=== PATIENT | male | born 1965 | race Caucasian/White ===

== ENCOUNTER 2016-10-13 16:22 | Inpatient (IN) | payer MEDICAID, OTHER ==
[~2016-10-13] VITALS: Ht 177.8 cm; Wt 77.1 kg
[~2016-10-13 16:22] MED LIST: HYDR-548 PO; RIFA300C4 PO; SULF1TAB48 PO
[2016-10-13] MEDS ORDERED: IV NORMAL SALINE 1000 ML BAG IV ONE (16:45)
[2016-10-13] MEDS ORDERED: ACETAMINOPHEN ES 500 MG TABLET PO ONE (16:45)
[2016-10-13] MEDS ORDERED: ACETAMINOPHEN ES 500 MG TABLET ONE (16:59)
[2016-10-13] MEDS ORDERED: PIPERACILLIN SODIUM/TAZOBACTAM 3.375 G in IV DEXTROSE 5% 50 ML IV ONE (17:15)
[2016-10-13] MEDS ORDERED: VANCOMYCIN IV 1,000 MG in IV DEXTROSE 5% 250 ML IV ONE (17:15)
--- NOTE | 2016-10-13 17:15 | NUR ---
UNABLE TO TAKE PICTURES; NO CAMERA IN ED
[2016-10-13 17:27] LABS: BASOPHILS # (AUTO) 0.6 K/uL (0.0-8.0); BASOPHILS % (AUTO) 2.8 % (0.0-2.0); EOSINOPHILS % (AUTO) 0.1 % (0.0-7.0); HEMATOCRIT 38.1 % (40-50); HEMOGLOBIN 12.6 G/DL (14.0-18.0); LYMPHOCYTES # (AUTO) 1.5 K/UL (0.8-4.8); LYMPHOCYTES % (AUTO) 7.4 % (20.5-51.5); MEAN CORPUSCULAR HEMOGLOBIN 27.7 UUG (27.0-31.0); MEAN CORPUSCULAR HGB CONC 33 g/dL (32.0-37.0); MONOCYTES # (AUTO) 1.2 K/UL (0.1-1.30); MONOCYTES % (AUTO) 5.9 % (0.0-11.0); NEUTROPHILS # (AUTO) 17.1 K/UL (1.8-8.9); NEUTROPHILS % (AUTO) 83.8 % (38.5-71.5); PLATELET COUNT (AUTO) 325 K/UL (150-450); RED BLOOD CELL COUNT(AUTO) 4.53 MIL/UL (4.7-6.1)
[2016-10-13 17:30] LABS: WHITE BLOOD COUNT (AUTO) 20.4 K/UL (4.0-11.2)
[2016-10-13] MEDS ORDERED: PIPERACILLIN/TAZOBACTAM/D5W 50 ML IV ONE (17:33)
[2016-10-13 17:35] LABS: CREATININE 1.1 mg/dL (0.6-1.3); POTASSIUM 4.4 mmol/L (3.5-5.1)
[2016-10-13 17:40] LABS: BILIRUBIN,DIRECT 0.2 mg/dL (0.0-0.2); BILIRUBIN,TOTAL 0.9 mg/dL (0.2-1.0); TOTAL PROTEIN, SERUM 7.9 g/dL (6.4-8.2)
--- NOTE | 2016-10-13 17:45 | NUR ---
ATTEMPTED TO CALL REPORT PER [employer] COMPANY DANCER. RN IS NOT AVAILABLE AT [facility] TIME.
[2016-10-13] MEDS ORDERED: VANCOMYCIN IV 200 ML ONE (18:00)
[2016-10-13 18:06] LABS: BAND % (MANUAL) 7 % (0-10); LYMPHOCYTES % (MANUAL) 9 % (20-40); MONOCYTES % (MANUAL) 4 % (2-10); NEUTROPHILS % (MANUAL) 80 % (42-75)
--- NOTE | 2016-10-13 18:17 | NUR ---
ATTEMPTED TO GIVEN REPORT, PER CANDICE AKERS UNABLE TO TAKE REPORT AT THIS TIME. WILL CALL BACK
--- NOTE | 2016-10-13 18:37 | NUR ---
REPORT GIVEN TO STEVE HARVEY, AWARE OF PT'S CURRENT CONDITION. WILL CONTINUE PLAN OF CARE
--- NOTE | 2016-10-13 19:00 | NUR ---
RECEIVED PATIENT FROM ER VIA [place], USHERED TO ROOM AND PLACED COMFORTABLY IN BED. TELE SR. ALERT AND ORIENTED. ABLE TO TO MAKE NEEDS KNOWN. ABLE TO PROVIDE HISTORY. BODY ASSESSMENT DONE. NOTED RIGHT LEG LARGER THAN THE LEFT D/T CELLULITIS. NOTED WOUNDS ON BILATERAL KNEES AND ARMS. SAFETY INITIATED. NEEDS ATTENDED. NO COMPLAINS OF PAIN. INSTRUCTED TO USE CALL LIGHT WHEN IN NEED OF ASSISTANCE. CALL LIGHT WITHIN REACH. WILL CONTINUE TO MONITOR.
[2016-10-13 20:00] VITALS: BP 111/69
[2016-10-13] MEDS ORDERED: MAGNESIUM HYDROXIDE 30 ML LIQUID UDC PO PRN (21:30)
[2016-10-13] MEDS ORDERED: ACETAMINOPHEN 325 MG TABLET PO PRN (21:30)
[2016-10-13] MEDS ORDERED: PIPERACILLIN/TAZOBACTAM/D5W 100 ML IV ONE (22:04)
[2016-10-13] MEDS: IV NS 1000 ML 1,000 ML IV PRN (22:28)
[2016-10-13] MEDS: PIPERACILLIN/TAZOBACTAM/D5W 50 ML IV SCH (22:28)
[2016-10-14] MEDS: MORPHINE SULFATE 2 MG/1 ML DISP.SYRIN IV PRN ×2 (01:36→05:39)
[2016-10-14] MEDS ORDERED: MORPHINE SULFATE 4 MG/1 ML DISP.SYRIN ONE ×2 (01:46→05:50)
[2016-10-14] MEDS: ONDANSETRON 4 MG/2 ML VIAL IV PRN ×2 (02:56→20:47)
[2016-10-14] MEDS: HYDROCODONE/APAP 5-325MG TABLET PO PRN ×4 (02:57→20:47)
[2016-10-14] MEDS ORDERED: HYDROCODONE/APAP 5-325MG TABLET ONE (03:07)
[2016-10-14] MEDS ORDERED: ONDANSETRON 4 MG/2 ML VIAL ONE (03:08)
[2016-10-14] MEDS: PIPERACILLIN/TAZOBACTAM/D5W 50 ML IV SCH ×5 (04:47→20:53)
[2016-10-14 06:32] VITALS: BP 131/92
--- NOTE | 2016-10-14 06:51 | NUR ---
LEONIE DID NOT HAVE ANY 2 MG. MORPHINE. TOOK OUT THE 4 MG. AND WASTED 2 MG.
[2016-10-14 06:55] LABS: BASOPHILS # (AUTO) 0.1 K/uL (0.0-8.0); BASOPHILS % (AUTO) 0.3 % (0.0-2.0); EOSINOPHILS # (AUTO) 0.1 K/uL (0.0-0.7); EOSINOPHILS % (AUTO) 0.5 % (0.0-7.0); HEMATOCRIT 35.8 % (40-50); HEMOGLOBIN 11.9 G/DL (14.0-18.0); LYMPHOCYTES # (AUTO) 1.2 K/UL (0.8-4.8); LYMPHOCYTES % (AUTO) 6.2 % (20.5-51.5); MEAN CORPUSCULAR HGB CONC 33 g/dL (32.0-37.0); MEAN CORPUSCULAR VOLUME 84.2 FL (82.0-92.0); NEUTROPHILS # (AUTO) 17.5 K/UL (1.8-8.9); PLATELET COUNT (AUTO) 275 K/UL (150-450); RED BLOOD CELL COUNT(AUTO) 4.25 MIL/UL (4.7-6.1); WHITE BLOOD COUNT (AUTO) 19.9 K/UL (4.0-11.2)
[2016-10-14 07:24] LABS: BILIRUBIN,TOTAL 0.8 mg/dL (0.2-1.0); CREATININE 1.1 mg/dL (0.6-1.3); MAGNESIUM 1.7 mg/dL (1.8-2.4); PHOSPHOROUS 2.6 mg/dL (2.5-4.9); POTASSIUM 3.9 mmol/L (3.5-5.1); TOTAL PROTEIN, SERUM 6.8 g/dL (6.4-8.2)
[2016-10-14 07:39] LABS: NEUTROPHILS % (MANUAL) 78 % (42-75)
[2016-10-14 07:40] LABS: BAND % (MANUAL) 12 % (0-10); LYMPHOCYTES % (MANUAL) 6 % (20-40); MONOCYTES % (MANUAL) 4 % (2-10)
--- NOTE | 2016-10-14 07:45 | NUR ---
NO CHANGES T/O THE NIGHT. ALL SAFETY AND COMFORT MEASURES MAINTAINED T/O SHIFT. PATIENT COMPLAINED OF PAIN IN LOWER EXT. MEDS GIVEN, STATED RELIEF. WOUND CARE WITH SALINE AND PAT DRY. ALL SAFETY AND COMFORT MEASURES MAINTAINED T/O SHIFT. CALL LIGHT WITHIN REACH.
[2016-10-14] MEDS: MORPHINE SULFATE 4 MG/1 ML DISP.SYRIN IV PRN ×3 (09:35→17:56)
--- NOTE | 2016-10-14 09:44 | NUR ---
PT. HAS TEMP 100.0. TYLENOL GIVEN PER MAR. COOL CLOTHS APPLIED. PT. RESTING. JAMES. LEGS 10/26. MORPHINE GIVEN. JAMES LEGS ELEVATED. ALL NEEDS ATTENDED.
[2016-10-14] MEDS ORDERED: MAGNESIUM SULFATE/D5W 100 ML IV SCH (10:00)
[2016-10-14 11:49] LABS: *BILIRUBIN,URIN NEGATIVE (NEGATIVE); *BLOOD, URINE 1+ (NEGATIVE); *CLARITY,URINE SLIGHTLY CLOUDY (CLEAR); *COLOR,URINE YELLOW (YELLOW); *KETONES,URINE NEGATIVE (NEGATIVE); *PROTEIN,URINE TRACE (NEGATIVE); *UROBILINOGEN,URINE 0.2 E.U./dl (NORMAL); LEUKOCYTE ESTERASE ,URINE NEGATIVE (NEGATIVE); NITRITE, URINE NEGATIVE (NEGATIVE); UGLUCOSE NEGATIVE (NEGATIVE)
[2016-10-14 11:51] VITALS: BP 138/89
[2016-10-14 11:58] LABS: BACTERIA,URINE FEW /HPF (NONE SEEN); RBC,URINE 0-3 /HPF (0-3); SQUAMOUS EPITHELIAL CELL,UR FEW /HPF (NONE SEEN); WBC,URINE 0-3 /HPF (0-3)
[2016-10-14] MEDS: PANTOPRAZOLE SODIUM 40 MG TABLET.DR PO SCH (13:23)
[2016-10-14] MEDS: VANCOMYCIN IV 1,250 MG in IV DEXTROSE 5% 500 ML IV SCH ×2 (13:25→23:06)
[2016-10-14 15:31] VITALS: BP 129/82
--- NOTE | 2016-10-14 16:04 | NUR ---
Clinical pharmacy note-Vancomycin dosing per pharmacy Subjective: To start Vancomycin dosing on this patient for cellulitis Objective: BUN 21 Scr 1.1 WBC 19.9 Temp 8.8 Ht 5'10" Wt 170 lbs Assessment/Plan: Patient had Vancomycin 1gram in ER last night at 1753. Will continue Vancomycin as 1250mg IV every 13hrs (first dose given today at 1000) and draw trough by 4th dose(not ordered yet) for expected trough around 15. Will monitor renal function closely to adjust the dose if needed . Will follow daily.
[2016-10-14 19:00] VITALS: BP 142/82
--- NOTE | 2016-10-14 19:02 | NUR ---
PT. SLEEPING MOST OF SHIFT. GOOD APPETITE. INTERMITTENTLY REQUESTING PAIN MEDS IN A IRRITABLE MANNER. IV IN L. WRIST VERY SENSITIVE BUT FUNCTIONING. 3 UNSUCCESSFUL IV ATTEMPTS BY 2 RNS. IV PLACED IN R. FOREARM AND VANCO INFUSING. IV INFILTRATED WITHIN 20 MINUTES. IV REMOVED, ARM ELEVATED AND ICE PACK APPLIED. PT. ASKED IF A MIDLINE COULD BE PLACED AND HE REFUSED. SLEEPING CURRENTLY. DR. VILLARREAL NOTIFIED OF IV STATUS.
--- NOTE | 2016-10-14 19:30 | NUR ---
RECEIVED PATIENT LAYING IN BED. FACIAL GRIMACING, MOANING AND RIGHT ARM ON HIS FACE. FROM BILATERAL LEG PAIN 12/26. AM NURSE RON AND I ASKED IF WE COULD GO AHEAD AND INFUSE THE ZOSYN. PATIENT STATED "I DONT WANT ANYTHING ON". SAFETY INITIATED. CALL LIGHT WITHIN REACH. INFILTRATED ARM ELEVATED. WILL CONTINUE TO MONITOR.
--- NOTE | 2016-10-14 20:58 | NUR ---
GAVE NORCO 5-325 WITH ZOFRAN 2 MG IVP FOR PAIN 10/10 BILATERAL LEGS.
--- NOTE | 2016-10-14 21:00 | NUR ---
STARTED ZOSYN. PATIENT SAID "JUST LONG YOU RUN IT SLOW". STARTED IT AT 25 CC/HR. WILL CLOSELY MONITOR BECAUSE HE IS A HARD STICK. WILL TITRATE UP TO 50 CC/HR.
--- NOTE | 2016-10-14 21:05 | NUR ---
DR. VILLARREAL AT BEDSIDE. SEE ADDITIONAL ORDERS. CHANGED PAIN MED FROM MORPHINE TO DILAUDID 1 MG Q3H IVP ( REQUESTED BY PATIENT).
[2016-10-14] MEDS: HYDROMORPHONE 1 MG/1 ML DISP.SYRIN IV PRN (23:02)
[2016-10-14] MEDS ORDERED: HYDROMORPHONE 1 MG/1 ML DISP.SYRIN ONE (23:13)
[2016-10-15] MEDS: HYDROMORPHONE 1 MG/1 ML DISP.SYRIN IV PRN ×6 (01:47→23:17)
[2016-10-15] MEDS ORDERED: HYDROMORPHONE 1 MG/1 ML DISP.SYRIN ONE ×2 (01:53→04:52)
[2016-10-15 04:00] VITALS: BP 136/94
[2016-10-15] MEDS: PIPERACILLIN/TAZOBACTAM/D5W 50 ML IV SCH ×5 (04:35→20:44)
--- NOTE | 2016-10-15 05:00 | NUR ---
PATIENT REFUSED BLOOD DRAW.
[2016-10-15] MEDS: PANTOPRAZOLE SODIUM 40 MG TABLET.DR PO SCH (06:25)
--- NOTE | 2016-10-15 06:33 | NUR ---
PATIENT SLEPT INTERMITTENTLY T/O SHIFT. NO ACUTE DISTRESS NOTED. PATIENT ANGRILY ASKS FOR PAIN MEDICATION. GAVE PAIN MEDS, STATED RELIEF. ALL MEDS GIVEN ORDERED. NEEDS MET. CALL LIGHT WITHIN REACH. SAFETY AND COMFORT MAINTAINED T/O SHIFT.
[2016-10-15] MEDS: HYDROCODONE/APAP 5-325MG TABLET PO PRN ×3 (07:24→21:54)
--- NOTE | 2016-10-15 10:31 | NUR ---
Clinical pharmacy note-Vancomycin dosing per pharmacy Subjective: To continue Vancomycin dosing on this patient for cellulitis Objective: BUN 21 (10/14) Scr 1.1 (10/14) WBC 19.9 (10/14) Temp 98.9 Ht 5'10" Wt 170 lbs Assessment/Plan: Will continue Vancomycin as 1250mg IV every 13hrs for today. Third dose is due today at noon. Plan to draw trough by 4th dose( ordered for 10/16 at 0030- RN has been informed to hold 0100 dose if the vanco trough level is above 20 mcg/ml). Pharmacy shall review the level in am & adjust the dose if needed. Will follow daily.
[2016-10-15] MEDS ORDERED: IV NORMAL SALINE 500 ML IV ONE (11:30)
[2016-10-15 11:51] VITALS: BP 134/88
[2016-10-15] MEDS: VANCOMYCIN IV 1,250 MG in IV DEXTROSE 5% 500 ML IV SCH (12:40)
--- NOTE | 2016-10-15 15:30 | NUR ---
unable to give zosyn at this time due to no iv access---midline ordered awaiting insertion.
[2016-10-15 16:10] VITALS: BP 156/99
[2016-10-15 19:53] VITALS: BP 147/96
[2016-10-15] MEDS ORDERED: NORMAL SALINE FLUSH 10 ML DISP.SYRIN ONE (20:31)
--- NOTE | 2016-10-15 20:34 | NUR ---
PT RETURNED FROM IR LAB RESULT CALLED TO DR. WOODWARD. NO ORDERS GIVEN.
[2016-10-15] MEDS: IV NS 1000 ML 1,000 ML IV PRN (20:45)
--- NOTE | 2016-10-15 22:00 | NUR ---
CALLED [facility] FOR TRANSFER FOR HIGHER LEVEL OF CARE,REFERRED TO CALL IN AM [phone].[facility] called ,doesnt have any bed at this time.have the case management specialist to call in am [phone].faxed facesheet to [facility].
--- NOTE | 2016-10-16 00:13 | NUR ---
PT MIDLINE UNABLE TO DRAW BLOOD, PT HAS A VANCO TROUGH AND PT REFUSED TO HAVE BLOOD DRAWN PERIPHERALLY . CONTINUE WITH ANTIBIOTICS WILL DRAW BLOOD WITH AM LABS.
[2016-10-16] MEDS: VANCOMYCIN IV 1,250 MG in IV DEXTROSE 5% 500 ML IV SCH (01:05)
[2016-10-16] MEDS: PIPERACILLIN/TAZOBACTAM/D5W 50 ML IV SCH ×4 (03:26→23:44)
[2016-10-16] MEDS: HYDROMORPHONE 1 MG/1 ML DISP.SYRIN IV PRN ×7 (05:42→23:44)
[2016-10-16 05:52] VITALS: BP 153/99
[2016-10-16] MEDS: PANTOPRAZOLE SODIUM 40 MG TABLET.DR PO SCH (06:09)
[2016-10-16 06:31] LABS: BASOPHILS # (AUTO) 0.1 K/uL (0.0-8.0); BASOPHILS % (AUTO) 0.8 % (0.0-2.0); EOSINOPHILS # (AUTO) 0.2 K/uL (0.0-0.7); EOSINOPHILS % (AUTO) 1.7 % (0.0-7.0); HEMATOCRIT 36.2 % (40-50); HEMOGLOBIN 11.9 G/DL (14.0-18.0); LYMPHOCYTES # (AUTO) 1.6 K/UL (0.8-4.8); MEAN CORPUSCULAR HEMOGLOBIN 27.5 UUG (27.0-31.0); MEAN CORPUSCULAR HGB CONC 33 g/dL (32.0-37.0); MEAN CORPUSCULAR VOLUME 83.5 FL (82.0-92.0); MONOCYTES # (AUTO) 0.5 K/UL (0.1-1.30); MONOCYTES % (AUTO) 3.5 % (0.0-11.0); NEUTROPHILS # (AUTO) 10.9 K/UL (1.8-8.9); PLATELET COUNT (AUTO) 291 K/UL (150-450); RED BLOOD CELL COUNT(AUTO) 4.34 MIL/UL (4.7-6.1); WHITE BLOOD COUNT (AUTO) 13.3 K/UL (4.0-11.2)
[2016-10-16 06:41] LABS: BILIRUBIN,TOTAL 0.4 mg/dL (0.2-1.0); CREATININE 0.9 mg/dL (0.6-1.3); MAGNESIUM 1.7 mg/dL (1.8-2.4); PHOSPHOROUS 3.3 mg/dL (2.5-4.9); POTASSIUM 4.5 mmol/L (3.5-5.1); TOTAL PROTEIN, SERUM 7.4 g/dL (6.4-8.2)
--- NOTE | 2016-10-16 06:54 | NUR ---
TEXTED DR. LYONS FOR MRI APPROVAL.
[2016-10-16 07:27] LABS: THYROID STIMULATING HORMONE 2.427 mIU/mL (0.358-3.740)
--- NOTE | 2016-10-16 08:03 | NUR ---
RECEIVED PHONE CONFIRMATION OF MRI APPROVAL FROM [facility]. TRANSPORTATION IS BEING ARRANGED FOR 830AM PICKUP FOR A 9A, TABLE TIME.
[2016-10-16] MEDS ORDERED: GADOVERSETAMIDE 2.5 MMOL/5 ML VIAL MC ONE (09:57)
[2016-10-16] MEDS: METOPROLOL TARTRATE 25 MG TABLET PO SCH ×2 (10:15→19:54)
[2016-10-16] MEDS ORDERED: MAGNESIUM OXIDE 400 MG TABLET PO ONE (14:30)
--- NOTE | 2016-10-16 15:51 | NUR ---
Had been in contact with Juana from [facility] [ ; ] and she confirmed that the patient is under their care starting from 09/16/16. She is aware the patient needs a higher level of care for necrotizing fasciitis possibly needing amputation and patternmaker plaster and plastic per Dr. Alvarez. Juana tried to transfer to [place] but was unable to get an admitting Ortho. The awake overnight counselor initiated his transfer to [facility] and this finishing operator had been in contact with Dustin from [facility] [ ; ] and Cornel from [facility] [ ]. Cornel stated that they are not contracted with [facility] but if they provide Authorization for a One-Time Agreement, they are willing to look for a bed. He added that the insurance company needs to call with 3 authorizations [Facility Auth; LUIS CARLOS; and a Professional Auth]. Informed Juana of what [facility] needs and she stated that Rachel from [facility] will be working on the authorizations. Updated the zinc furnace charger, Kimber, about the situation. Addendum: 10/16/16 at 1611 by SANDRITA JAIMES CMG Dr. Yu was contacted by Dr. Robbin Elias [ ] and he agreed to be the admitting MD at [facility]. Addendum: 10/16/16 at 1626 by SANDRITA JAIMES CM Juana called and stated that Rachel [ ext. [phone]], DEBBIE Madera, provided the authorization to [facility]. Juana confirmed that the authorization is all inclusive [Auth# [id number] covering 10/16/16 until 12/16/16]. Provided her with [facility]'s the admitting MD's information. She stated that [facility] [ or ]. Addendum: 10/16/16 at 1636 by SANDRITA JAIMES CM Called Cornel from [facility] and gave him the authorization# from DEBBIE Madera, Phone number of Rachel and Juana. He will follow-up to see if he can financially clear the patient. Once the patient is financially cleared, the transfer center will be looking for an available bed and will call the RN station to proceed with the report and transfer.
[2016-10-16 16:53] VITALS: BP 147/97
--- NOTE | 2016-10-16 18:15 | NUR ---
PATIENT HAD AN MRI PERFORMED, BUT THEY COULD NOT GIVE IV CONTRAST. PATIENT RETURNED FROM MRI AT 11AM, AND CONTINUED TO ASK FOR PAIN MEDICINE EVERY 3 HOURS. PATIENT ALSO REFUSED HAVING BLOOD DRAW, BUT FINALLY [facility]. PATIENT IS CURRENTLY IN BED SLEEPING, NO EVIDENCE OF DISTRESS NOTED.
[2016-10-16] MEDS: HYDROCODONE/APAP 5-325MG TABLET PO PRN (19:57)
--- NOTE | 2016-10-16 21:00 | NUR ---
NSG: RETURNED CALL TO [facility], VERIFY REGARDING TRANSFER STATUS FOR PT, SPOKE WITH REP, STATED PT IS DENIED OF TRANSFER TO [facility]. DR. VILLARREAL IS NOTIFIED. NO NEW ORDER RECEIVED.
[2016-10-17] MEDS: HYDROMORPHONE 1 MG/1 ML DISP.SYRIN IV PRN ×7 (02:49→23:08)
--- NOTE | 2016-10-17 05:51 | NUR ---
NSG: UNABLE TO DRAW BLOOD FROM THE MIDLINE. PT REFUSED BLOOD DRAW BY ERP PM, ANGRILY STATED TO DRAW FR HIS ARTERY. PT VERBALLY ABUSIVE TO STAFF. NOTIFIED CHARGE NURSE.
[2016-10-17] MEDS: PIPERACILLIN/TAZOBACTAM/D5W 50 ML IV SCH ×3 (06:34→18:09)
[2016-10-17] MEDS: PANTOPRAZOLE SODIUM 40 MG TABLET.DR PO SCH (06:34)
[2016-10-17] MEDS: IV NS 1000 ML 1,000 ML IV PRN (06:38)
[2016-10-17 06:46] VITALS: BP 149/102
[2016-10-17 08:10] LABS: CREATININE 0.9 mg/dL (0.6-1.3); MAGNESIUM 1.8 mg/dL (1.8-2.4); POTASSIUM 4.1 mmol/L (3.5-5.1)
--- NOTE | 2016-10-17 08:44 | NUR ---
PT ALLOWED MYSELF TO DRAW BLOOD FROM MIDLINE, GOT BLOOD RETURN, PT NOW SLEEPING IN BED AT THIS TIME, ALL SAFETY MEASURES ATTENDED TOO, IV INTACT AND INFUSING WELL. LEGS ELEVATED, CALL LIGHT IN REACH, WILL CONTINUE TO MONITOR
[2016-10-17] MEDS: METOPROLOL TARTRATE 25 MG TABLET PO SCH ×2 (09:20→21:17)
--- NOTE | 2016-10-17 09:47 | NUR ---
WOUND CARE CONSULT WOUND CARE RECEIVED CONSULT FOR PATIENT. ELECTRIC FAN ASSEMBLER WILL DEFER TO SURGEONS AT THIS TIME. DISCUSSED WITH GROUND CREWMAN.
[2016-10-17] MEDS: HYDROCODONE/APAP 5-325MG TABLET PO PRN ×2 (10:42→18:09)
--- NOTE | 2016-10-17 10:59 | NUR ---
PT EXPRESSING PAIN 8/10 IN RIGHT KNEE, AND WANTS NORCO. NORCO GIVEN ORDERED, WILL CONTINUE TO MONITOR
[2016-10-17 11:51] VITALS: BP 153/95
[2016-10-17 16:00] VITALS: BP 151/100
--- NOTE | 2016-10-17 16:20 | NUR ---
Spoke with the patient's manager track [Juana ] who gave this courtroom reporter a list of contracted SNF's. faxed the facilities below CM/SW to follow: 1. [facility] [phone] 2. [facility] [phone] 3.[facility] [phone] 4. [facility] [phone] 5. [facility] [phone] 6. [facility] [phone] 7. [facility] [phone] 8. [facility] [phone] 9. [facility] [phone] 10. [facility] [phone]
--- NOTE | 2016-10-17 18:33 | NUR ---
CO RESTING IN BED, IN NO ACUTE DISTRESS, MEDICATED FOR PAIN THROUGHOUT SHIFT NEEDED, CALL LIGHT IN REACH
[2016-10-17 20:00] VITALS: BP 151/94
--- NOTE | 2016-10-17 20:31 | NUR ---
CLINICAL PHARMACY NOTE:VANCOMYCIN DOSING Restart of vancomycin on 51 y/o male 5' 10" 170lbs for right knee infection temp 98.8f BUN 10 scr 0.9 WBC 13.3 also on zosyn and clindamycin vancomycin 1250mg ivpb q12h estimate trough 13. Will continue to monitor
[2016-10-17] MEDS: VANCOMYCIN IV 1,250 MG in IV DEXTROSE 5% 500 ML IV SCH (21:17)
[2016-10-17] MEDS ORDERED: CLINDAMYCIN PHOSPHATE IV 900 MG in IV DEXTROSE 5% 100 ML IV SCH (22:00)
[2016-10-17] MEDS: CLINDAMYCIN PHOSPHATE IV 900 MG in IV DEXTROSE 5% 100 ML IV SCH (23:08)
[2016-10-18] MEDS: IV NS 1000 ML 1,000 ML IV PRN (02:19)
[2016-10-18] MEDS: HYDROMORPHONE 1 MG/1 ML DISP.SYRIN IV PRN ×8 (02:19→23:33)
[2016-10-18] MEDS: PIPERACILLIN/TAZOBACTAM/D5W 50 ML IV SCH ×4 (02:19→17:15)
[2016-10-18 04:15] VITALS: BP 174/115
[2016-10-18] MEDS: CLINDAMYCIN PHOSPHATE IV 900 MG in IV DEXTROSE 5% 100 ML IV SCH ×3 (05:31→23:33)
--- NOTE | 2016-10-18 05:32 | NUR ---
ATTEMPTED TO DRAW BLOOD FROM MIDLINE BUT NO BLOOD RETURN OBSERVED, PT IRRITABLE AND REFUSED TO HAVE CAPACITOR REPAIRER DRAW BLOOD. WILL NOTIFY
[2016-10-18] MEDS: PANTOPRAZOLE SODIUM 40 MG TABLET.DR PO SCH (06:19)
--- NOTE | 2016-10-18 06:37 | NUR ---
PT SLEPT WELL THROUGH OUT THE NIGHT, AWAKE AT TIMES REQUESTING DILAUDID ORDERED. PT TOLERATING IV FLUIDS AND ANTIBIOTICS WELL. NO ACUTE DISTRESS NOTED. SAFETY MEASURES MAINTAINED.
[2016-10-18 07:02] VITALS: BP 161/118
--- NOTE | 2016-10-18 08:23 | NUR ---
PT BLOOD PRESSURE 161/118. SITTING IN BED EATING BREAKFAST, CALLED PHARMACY FOR DUE LOPRESSOR NOT SHOWING IN [facility]IX[facility]. PHARMACY WILL BRING UP MEDICATION. IN THE MEAN TIME, IV FLUID RATE TURNED DOWN AND DUE PRN DILAUDID 1MG IV GIVEN. WILL CONTINUE TO MONITOR CLOSELY
[2016-10-18] MEDS: METOPROLOL TARTRATE 25 MG TABLET PO SCH ×2 (08:38→20:38)
--- NOTE | 2016-10-18 08:45 | NUR ---
MD AWARE OF PT BP. MEDICATIONS GIVEN ORDERED
[2016-10-18] MEDS: HYDROCODONE/APAP 5-325MG TABLET PO PRN ×2 (09:54→19:36)
[2016-10-18] MEDS: VANCOMYCIN IV 1,250 MG in IV DEXTROSE 5% 500 ML IV SCH ×2 (10:11→21:57)
[2016-10-18 10:17] LABS: BASOPHILS # (AUTO) 0.2 K/uL (0.0-8.0); BASOPHILS % (AUTO) 2.1 % (0.0-2.0); EOSINOPHILS # (AUTO) 0.1 K/uL (0.0-0.7); EOSINOPHILS % (AUTO) 1.9 % (0.0-7.0); HEMATOCRIT 26.6 % (40-50); LYMPHOCYTES # (AUTO) 1.2 K/UL (0.8-4.8); LYMPHOCYTES % (AUTO) 16.5 % (20.5-51.5); MEAN CORPUSCULAR HEMOGLOBIN 28.5 UUG (27.0-31.0); MEAN CORPUSCULAR HGB CONC 34 g/dL (32.0-37.0); MEAN CORPUSCULAR VOLUME 84.8 FL (82.0-92.0); MONOCYTES # (AUTO) 0.3 K/UL (0.1-1.30); MONOCYTES % (AUTO) 3.8 % (0.0-11.0); NEUTROPHILS # (AUTO) 5.7 K/UL (1.8-8.9); NEUTROPHILS % (AUTO) 75.7 % (38.5-71.5); PLATELET COUNT (AUTO) 291 K/UL (150-450); RED BLOOD CELL COUNT(AUTO) 3.14 MIL/UL (4.7-6.1); WHITE BLOOD COUNT (AUTO) 7.5 K/UL (4.0-11.2)
[2016-10-18 11:32] VITALS: BP 150/103
--- NOTE | 2016-10-18 15:12 | NUR ---
CLINICAL PHARMACY NOTE:VANCOMYCIN DOSING Subjetive: Restart of vancomycin on 51 y/o male 5' 10" 170lbs for right knee infection Objective: temp 98.8f BUN 10 scr 0.9 WBC 13.3 also on zosyn and clindamycin Assessment/Plan Continued vancomycin 1250mg ivpb q12h estimate trough 13. 3rd dose due today at 2100. Ordered trough before 4th scheduled dose (due tomorrow / @ 0830am). Will check trough and readjust as needed. Will continue to monitor
[2016-10-18 15:52] VITALS: BP 147/102
--- NOTE | 2016-10-18 18:39 | NUR ---
ALL DUE MEDICATIONS GIVEN, ALL SAFETY AND COMFORT MEASURES MAINTAINED THROUGHOUT SHIFT CALL LIGHT IN REACH.
--- NOTE | 2016-10-18 19:53 | NUR ---
RECEIVED PATIENT COMFORTABLY LAYING IN BED. A/O X'S 4 BUT KEPT TO SELF. PATIENT COMPLAINED NO ACUTE DISTRESS NOTED. SAFETY INITIATED. CALL LIGHT WITHIN REACH.
[2016-10-19] MEDS: PIPERACILLIN/TAZOBACTAM/D5W 50 ML IV SCH ×4 (00:46→17:55)
[2016-10-19] MEDS: HYDROMORPHONE 1 MG/1 ML DISP.SYRIN IV PRN ×7 (02:37→21:10)
[2016-10-19 04:00] VITALS: BP_SYST 145; BP_SYST 159; BP_DIAS 104; BP_DIAS 96
[2016-10-19] MEDS: CLINDAMYCIN PHOSPHATE IV 900 MG in IV DEXTROSE 5% 100 ML IV SCH ×2 (05:05→14:44)
[2016-10-19] MEDS: PANTOPRAZOLE SODIUM 40 MG TABLET.DR PO SCH (06:06)
--- NOTE | 2016-10-19 06:27 | NUR ---
PATIENT SLEPT INTERMITTENTLY T/O SHIFT. FREQUENTLY ASKS FOR PAIN MEDS. MEDS GIVEN ORDERED. STATED RELIEF. B/P WAS ELEVATED T/O SHIFT. CHARGE NURSE MD GABRIEL LINARES MD INCREASED MED (LOPRESSOR) AND ADDED NORVASC IN THE AM. NO ACUTE DISTRESS NOTED. SAFETY AND COMFORT MEASURES MAINTAINED T/O SHIFT. ALL NEEDS MET.
[2016-10-19] MEDS: METOPROLOL TARTRATE 25 MG TABLET PO SCH (08:28)
[2016-10-19] MEDS: AMLODIPINE 10 MG TABLET PO SCH (08:28)
[2016-10-19] MEDS: VANCOMYCIN IV 1,250 MG in IV DEXTROSE 5% 500 ML IV SCH ×2 (11:23→20:16)
[2016-10-19 11:48] VITALS: BP 141/84
[2016-10-19] MEDS: IV NS 1000 ML 1,000 ML IV PRN (12:00)
[2016-10-19] MEDS: HYDROCODONE/APAP 5-325MG TABLET PO PRN ×2 (13:08→20:15)
--- NOTE | 2016-10-19 14:03 | NUR ---
CLINICAL PHARMACY NOTE:VANCOMYCIN DOSING Subjetive: Restart of vancomycin on 51 y/o male 5' 10" 170lbs for right knee infection Objective: temp 98 BUN 10 (10/17) scr 0.9 (10/17) WBC 13.3 (10/17) also on zosyn and clindamycin Trough: 16.5 (today at 0830) Assessment/Plan As trough within range, will continue vancomycin 1250mg ivpb q12h for now. Will continue monitoring renal function and readjust if were to become unstable. Will continue to follow
[2016-10-19 15:37] VITALS: BP_SYST 130; BP_SYST 140; BP_DIAS 53; BP_DIAS 93
[2016-10-19 19:53] VITALS: BP 131/80
[2016-10-19] MEDS: METOPROLOL TARTRATE 50 MG TABLET PO SCH (20:14)
[2016-10-20] MEDS: PIPERACILLIN/TAZOBACTAM/D5W 50 ML IV SCH ×4 (00:08→17:44)
[2016-10-20] MEDS: HYDROMORPHONE 1 MG/1 ML DISP.SYRIN IV PRN ×8 (00:11→21:05)
[2016-10-20] MEDS: HYDROCODONE/APAP 5-325MG TABLET PO PRN (02:01)
[2016-10-20 04:16] VITALS: BP 125/81
--- NOTE | 2016-10-20 05:50 | NUR ---
PT CONTINUE TO HAVE PAIN ON HIS RIGHT KNEE WOUND,ATC DILAUDID AND NORCO.WOUND IS DRY.CONTINUE WITH IV FLUIDS AND ANTIBIOTICS,SLEPT INTERMITTENTLY.ALL NEEDS ATTENDED,VSS AFEBRILE.
[2016-10-20] MEDS: PANTOPRAZOLE SODIUM 40 MG TABLET.DR PO SCH (06:08)
[2016-10-20 07:01] LABS: CREATININE 1.2 mg/dL (0.6-1.3); MAGNESIUM 1.9 mg/dL (1.8-2.4); PHOSPHOROUS 3.8 mg/dL (2.5-4.9); POTASSIUM 4.4 mmol/L (3.5-5.1)
[2016-10-20 08:03] LABS: BASOPHILS # (AUTO) 0.1 K/uL (0.0-8.0); BASOPHILS % (AUTO) 0.7 % (0.0-2.0); EOSINOPHILS # (AUTO) 0.3 K/uL (0.0-0.7); EOSINOPHILS % (AUTO) 2.7 % (0.0-7.0); LYMPHOCYTES # (AUTO) 2.6 K/UL (0.8-4.8); MEAN CORPUSCULAR HEMOGLOBIN 27.6 UUG (27.0-31.0); MEAN CORPUSCULAR HGB CONC 33 g/dL (32.0-37.0); MEAN CORPUSCULAR VOLUME 83.9 FL (82.0-92.0); MONOCYTES # (AUTO) 0.8 K/UL (0.1-1.30); NEUTROPHILS # (AUTO) 7.5 K/UL (1.8-8.9); NEUTROPHILS % (AUTO) 66.6 % (38.5-71.5)
[2016-10-20 08:05] LABS: HEMATOCRIT 40.3 % (40-50); HEMOGLOBIN 13.3 G/DL (14.0-18.0); RED BLOOD CELL COUNT(AUTO) 4.81 MIL/UL (4.7-6.1); WHITE BLOOD COUNT (AUTO) 11.3 K/UL (4.0-11.2)
[2016-10-20 08:06] LABS: PLATELET COUNT (AUTO) 547 K/UL (150-450)
[2016-10-20 08:31] LABS: EOSINOPHILS % (MANUAL) 2 % (0-8); LYMPHOCYTES % (MANUAL) 29 % (20-40); MONOCYTES % (MANUAL) 8 % (2-10); NEUTROPHILS % (MANUAL) 61 % (42-75)
[2016-10-20] MEDS: AMLODIPINE 10 MG TABLET PO SCH (09:18)
[2016-10-20] MEDS: METOPROLOL TARTRATE 50 MG TABLET PO SCH ×2 (09:18→20:56)
[2016-10-20] MEDS: VANCOMYCIN IV 1,250 MG in IV DEXTROSE 5% 500 ML IV SCH ×2 (09:22→20:55)
[2016-10-20 12:40] VITALS: BP 138/94
[2016-10-20 15:32] VITALS: BP 140/98
--- NOTE | 2016-10-20 15:46 | NUR ---
CLINICAL PHARMACY NOTE:VANCOMYCIN DOSING Subjetive: Restart of vancomycin on 51 y/o male 5' 10" 170lbs for right knee infection Objective: temp 98.5 BUN 19 scr 1.2 WBC 11.3 Trough: 16.5 (10/19 at 0830) Assessment/Plan As trough had been in range, will continue vancomycin 1250mg ivpb q12h for now. Though Scr is up from baseline, there were no labs day that trough had resulted in therapeutic range (no labs prior day either), thus uncertain if Scr has been stable at around 1.2 previously. If Scr continues to increase, may consider retaking trough or dosing per level if unstable. Will continue to follow
[2016-10-20] MEDS: IV NS 1000 ML 1,000 ML IV PRN (17:41)
--- NOTE | 2016-10-20 19:25 | NUR ---
RECEIVED PATIENT IN BED, NO SOB NO CHEST PAIN NOTED, CONT ON PAIN MANAGEMENT, CONTINENT OF BOWEL AND BLADDER, CONT TO MONITOR.
[2016-10-20 20:00] VITALS: BP 150/102
--- NOTE | 2016-10-20 20:05 | NUR ---
DR VILLARREAL MADE ROUNDS WITH ORDER FOR ZOFOFT 50 MG PO QHS.
[2016-10-20] MEDS: SERTRALINE HCL 50 MG TABLET PO SCH (20:56)
[2016-10-21] MEDS: PIPERACILLIN/TAZOBACTAM/D5W 50 ML IV SCH ×4 (00:05→18:55)
[2016-10-21] MEDS: HYDROMORPHONE 1 MG/1 ML DISP.SYRIN IV PRN ×8 (00:13→21:54)
[2016-10-21 05:00] VITALS: BP 153/103
[2016-10-21] MEDS: PANTOPRAZOLE SODIUM 40 MG TABLET.DR PO SCH (06:28)
--- NOTE | 2016-10-21 06:43 | NUR ---
PATIENT SLEPT MOST OF THE NIGHT, CONT ON PAIN MANAGEMENT, NO SOB NO CHEST PAIN. CONT TO MONITOR.
[2016-10-21 06:47] LABS: BASOPHILS % (AUTO) 0.3 % (0.0-2.0); EOSINOPHILS # (AUTO) 0.2 K/uL (0.0-0.7); EOSINOPHILS % (AUTO) 2.2 % (0.0-7.0); HEMOGLOBIN 11.4 G/DL (14.0-18.0); LYMPHOCYTES # (AUTO) 2.2 K/UL (0.8-4.8); LYMPHOCYTES % (AUTO) 22.5 % (20.5-51.5); MEAN CORPUSCULAR HEMOGLOBIN 28.4 UUG (27.0-31.0); MEAN CORPUSCULAR HGB CONC 34 g/dL (32.0-37.0); MEAN CORPUSCULAR VOLUME 84.6 FL (82.0-92.0); MONOCYTES # (AUTO) 0.7 K/UL (0.1-1.30); MONOCYTES % (AUTO) 7.3 % (0.0-11.0); NEUTROPHILS # (AUTO) 6.8 K/UL (1.8-8.9); NEUTROPHILS % (AUTO) 67.7 % (38.5-71.5); PLATELET COUNT (AUTO) 439 K/UL (150-450); WHITE BLOOD COUNT (AUTO) 9.9 K/UL (4.0-11.2)
[2016-10-21 07:13] LABS: HEMATOCRIT 33.8 % (40-50)
[2016-10-21 07:52] LABS: BILIRUBIN,TOTAL 0.3 mg/dL (0.2-1.0); CREATININE 1.2 mg/dL (0.6-1.3); MAGNESIUM 1.8 mg/dL (1.8-2.4); PHOSPHOROUS 3.5 mg/dL (2.5-4.9); POTASSIUM 4.6 mmol/L (3.5-5.1); TOTAL PROTEIN, SERUM 8.4 g/dL (6.4-8.2)
[2016-10-21] MEDS: METOPROLOL TARTRATE 50 MG TABLET PO SCH ×2 (08:34→21:46)
[2016-10-21] MEDS: AMLODIPINE 10 MG TABLET PO SCH (08:34)
[2016-10-21] MEDS: VANCOMYCIN IV 1,250 MG in IV DEXTROSE 5% 500 ML IV SCH ×2 (08:35→21:46)
--- NOTE | 2016-10-21 09:09 | NUR ---
Faxed the following [facility] facilities. Currently awaiting an answer: 1.[facility]. 2.[facility] 3.[facility] 4.[facility] 5.[facility] 6.[facility] 7.[facility] 8.[facility] 9.[facility] 10.[facility] Addendum: 10/21/16 at 1653 by [place] [facility] ], their DON will review the case tomorrow. If they accept, Donna [Sales Account Coordinator] said they will accep on Sunday. Will follow up.
[2016-10-21 11:20] VITALS: BP 134/82
[2016-10-21] MEDS: IV NS 1000 ML 1,000 ML IV PRN (12:56)
--- NOTE | 2016-10-21 15:35 | NUR ---
CLINICAL PHARMACY NOTE:VANCOMYCIN DOSING Subjetive: Restart of vancomycin on 51 y/o male 5' 10" 170lbs for right knee infection Objective: temp 97.7 BUN 19 scr 1.2 WBC 9.9 Assessment/Plan Since renal function is stable today , will continue vancomycin 1250mg ivpb q12h for now. If Scr continues to increase, may consider retaking trough or dosing per level if unstable. Will continue to follow
[2016-10-21 16:08] VITALS: BP 133/89
--- NOTE | 2016-10-21 19:00 | NUR ---
RECEIVED IN BED, NO SOB NO CHEST PAIN NOTED, CONT ON PAIN MANAGEMENT, CONT TO MONITOR.
[2016-10-21 20:00] VITALS: BP 131/84
[2016-10-21] MEDS: SERTRALINE HCL 50 MG TABLET PO SCH (21:46)
[2016-10-22] MEDS: PIPERACILLIN/TAZOBACTAM/D5W 50 ML IV SCH ×4 (00:24→17:59)
[2016-10-22] MEDS: HYDROMORPHONE 1 MG/1 ML DISP.SYRIN IV PRN ×7 (02:18→21:13)
[2016-10-22 05:00] VITALS: BP 125/80
[2016-10-22] MEDS: PANTOPRAZOLE SODIUM 40 MG TABLET.DR PO SCH (05:37)
--- NOTE | 2016-10-22 06:55 | NUR ---
PATIENT SLEPT MOST OF THE NIGHT, NO SOB NO CHEST PAIN, CONT ON PAIN MANAGEMENT FOR LEFT KNEEE CELLULITIS, CONT TO MONITOR.
--- NOTE | 2016-10-22 07:15 | NUR ---
PT IS MISSING FROM THE ROOM. CALLED SECURITY. PER SECURITY "DON'T SEE THE PT ANYWHERE"
--- NOTE | 2016-10-22 07:30 | NUR ---
PT IS IN THE ROOM, LAYING IN BED COMFORTABLE. PT IS ASKING FOR PAIN MEDICATIONS, BUT IV IS MISSING. WILL RESTART THE IV. ALL SAFETY NEEDS ARE MET. NO S/S OF RESPIRATORY DISTRESS NOTED.
[2016-10-22] MEDS: AMLODIPINE 10 MG TABLET PO SCH (08:37)
[2016-10-22] MEDS: VANCOMYCIN IV 1,250 MG in IV DEXTROSE 5% 500 ML IV SCH ×2 (08:37→21:13)
[2016-10-22] MEDS: METOPROLOL TARTRATE 50 MG TABLET PO SCH ×2 (08:38→21:13)
[2016-10-22 11:54] VITALS: BP 131/96
[2016-10-22] MEDS: IV NS 1000 ML 1,000 ML IV PRN (12:40)
--- NOTE | 2016-10-22 13:06 | NUR ---
CLINICAL PHARMACY NOTE:VANCOMYCIN DOSING Subjetive: Continue vancomycin on 51 y/o male 5' 10" 170lbs for right knee infection Objective: temp 98 BUN 19 (8/) scr 1.2 (8/) WBC 9.9 (8/) Assessment/Plan Will continue same dose of vancomycin 1250mg ivpb q12h for now. Next dose is due tonight at 2100. If Scr continues to increase, may consider retaking trough or dosing per level if unstable. Will continue to follow
[2016-10-22 16:14] VITALS: BP 134/86
--- NOTE | 2016-10-22 18:38 | NUR ---
WOUND IS OPEN TO AIR, KEPT CLEAN.
--- NOTE | 2016-10-22 19:39 | NUR ---
PT IS LAYING IN BED COMFORTABLY. NO PAIN NOTED. ALL SAFETY NEEDS ARE MET. MIDLINE IS INTACT/PATENT. NO S/S OF RESPIRATORY DISTRESS NOTED.
[2016-10-22 20:00] VITALS: BP 146/90
--- NOTE | 2016-10-22 20:12 | NUR ---
PT RECEIVED IN BED aoX4, NO ACUTE DISTRESS NOTED. RECEIVING IV FLUIDS IN RIGHT UPPER ARM VIA MIDLINE, INTACT AND TOLERATING WELL. LUNG SOUNDS CLEAR THROUGH OUT WITH AUSCULTATION. BED IN LOW AND LOCKED POSITION, CALL LIGHT WITHIN REACH.
[2016-10-22] MEDS: SERTRALINE HCL 50 MG TABLET PO SCH (21:13)
[2016-10-22] MEDS: LEVOFLOXACIN 750 MG TABLET PO SCH (21:33)
[2016-10-22] MEDS ORDERED: LEVOFLOXACIN 750 MG TABLET ONE (21:43)
[2016-10-23 00:15] VITALS: BP 162/103
[2016-10-23] MEDS: HYDROMORPHONE 1 MG/1 ML DISP.SYRIN IV PRN ×8 (00:20→22:55)
--- NOTE | 2016-10-23 02:27 | NUR ---
PT OBSERVED IN BED ASLEEP, EASILY AROUSABLE. NO ACUTE DISTRESS NOTED. SAFETY MEASURES MAINTAINED.
[2016-10-23 04:00] VITALS: BP 145/92
--- NOTE | 2016-10-23 06:16 | NUR ---
UNABEL TO DRAW BLOOD FROM MIDLINE AND PT REFUSED TO HAVE BLOOD DRAWN BY SLURRY MIXER. PT UNCOOPERATIVE AND IRRITABLE UPON APPROACH. EDUCATION PROVIDED. WILL NOTIFY
[2016-10-23] MEDS: PANTOPRAZOLE SODIUM 40 MG TABLET.DR PO SCH (06:17)
[2016-10-23] MEDS: AMLODIPINE 10 MG TABLET PO SCH (09:36)
[2016-10-23] MEDS: METOPROLOL TARTRATE 50 MG TABLET PO SCH ×2 (09:37→20:07)
[2016-10-23] MEDS: VANCOMYCIN IV 1,250 MG in IV DEXTROSE 5% 500 ML IV SCH ×2 (09:46→20:07)
[2016-10-23 11:58] VITALS: BP 108/58
--- NOTE | 2016-10-23 15:14 | NUR ---
CLINICAL PHARMACY NOTE:VANCOMYCIN DOSING Subjetive: Continue vancomycin on 51 y/o male 5' 10" 170lbs for right knee infection Objective: temp 98.7 BUN 19 (8/5) scr 1.2 (8/5) WBC 9.9 (8/) Patient is refusing labs Assessment/Plan Will continue same dose of vancomycin 1250mg ivpb q12h for now. Next dose is due tonight at 2100. If Scr changes significantly , may consider retaking trough or dosing per level if unstable. Will continue to follow.
[2016-10-23 15:18] VITALS: BP 117/72
--- NOTE | 2016-10-23 19:30 | NUR ---
RECEIVED PATIENT IN BED, ALERT ORIENTED, CONT ON PAIN MANAGEMENT, NO SOB NO CHEST PAIN NOTED, CONT TO MONITOR.
--- NOTE | 2016-10-23 19:43 | NUR ---
NO S/S OF RESPIRATORY DISTRESS NOTED. PT IS ON RA IV INTACT/PATENT. ALL SAFETY NEEDS ARE MET.
[2016-10-23] MEDS: LEVOFLOXACIN 750 MG TABLET PO SCH (19:49)
[2016-10-23] MEDS: SERTRALINE HCL 50 MG TABLET PO SCH (20:07)
[2016-10-23] MEDS: IV NS 1000 ML 1,000 ML IV PRN (20:09)
[2016-10-23 20:40] VITALS: BP 123/66
[2016-10-24] MEDS: HYDROMORPHONE 1 MG/1 ML DISP.SYRIN IV PRN ×8 (01:43→23:37)
[2016-10-24 04:00] VITALS: BP 142/98
[2016-10-24] MEDS: PANTOPRAZOLE SODIUM 40 MG TABLET.DR PO SCH (06:09)
--- NOTE | 2016-10-24 07:03 | NUR ---
PATIENT CONT ON PAIN MANAGEMENT, NO SOB NO CHEST PAIN CONT TO MONITOR. PATIENT HAD A BEHAVIOR YELLS AND SCREAMS AT STAFF. CONT TO MONITOR.
[2016-10-24] MEDS: IV NS 1000 ML 1,000 ML IV PRN ×2 (08:29→22:34)
--- NOTE | 2016-10-24 08:30 | NUR ---
AWAKE COOPERATE WELL NO SOB STATE PAIN MED HELP TO RELIEF PAIN RESTING WITH CALL MCNALLY IN REACH
[2016-10-24] MEDS: AMLODIPINE 10 MG TABLET PO SCH (08:31)
[2016-10-24] MEDS: METOPROLOL TARTRATE 50 MG TABLET PO SCH ×2 (08:31→20:42)
--- NOTE | 2016-10-24 11:00 | NUR ---
DR JAMISON LLANOS SEE PATIENT TODAY AND ORDER IN CHART
[2016-10-24] MEDS: VANCOMYCIN IV 1,250 MG in IV DEXTROSE 5% 500 ML IV SCH ×2 (11:29→21:31)
[2016-10-24 12:09] VITALS: BP 124/78
[2016-10-24] MEDS ORDERED: PANT40TA2 PO (12:14)
[2016-10-24] MEDS ORDERED: RXVAN XX (12:14)
[2016-10-24] MEDS ORDERED: METO50TA3 PO (12:14)
[2016-10-24] MEDS ORDERED: HYDR-3326 PO (12:14)
[2016-10-24] MEDS ORDERED: AMLO10TA2 PO (12:14)
[2016-10-24] MEDS ORDERED: LEVO750T21 PO (12:14)
[2016-10-24] MEDS ORDERED: SERT50TA12 PO (12:14)
[2016-10-24] MEDS ORDERED: ACET325T53 PO (12:14)
--- NOTE | 2016-10-24 13:00 | NUR ---
EAT LUNCH WELL REFUSED TO DRAW BLOOD FOR BMP AND TAKE PICTURE OF JAMES KNEE WOUND POSS D/C TO SNF TODAY IF BED AVAILABLE
--- NOTE | 2016-10-24 14:00 | NUR ---
D/C PLANNING STILL WORKING BY [employer] BUT NO SNF BED AVAILABLE TODAY
[2016-10-24 15:26] VITALS: BP 121/80
--- NOTE | 2016-10-24 17:00 | NUR ---
STABLE HEMODYNAMIC NO SOB OR RESPIRATORY DISTRESS PAIN UNDER CONTROL ON FALL PRECAUTION BED ALARM ON AND CALL MCNALLY IN REACH
--- NOTE | 2016-10-24 17:43 | NUR ---
CLINICAL PHARMACY NOTE:VANCOMYCIN DOSING Subjetive: Continue vancomycin on 51 y/o male 5' 10" 170lbs for right knee infection Objective: temp 98.8 BUN 19 (10/21) scr 1.2 (10/21) WBC 9.9 (10/21) Vanco trough level: 5.9 Assessment/Plan Vanco trough level was ordered for today at 0830. Patient refused lab. At 1030, lab reports vanco trough 5.9 mcg/ml. This is not a true tough & unlikely to be accurate since last vanco trough on 10/19 is 16.5. RN gave 0900 dose at 1130 today. Will continue same dose of vancomycin 1250mg ivpb q12h for now. Will re-order chem-7 & vanco trough level in am (ordered for 10/25 at 0830.). Pharmacy shall check level in am & adjust dose if needed. Will continue to follow.
--- NOTE | 2016-10-24 19:20 | NUR ---
Bedside reporting with CANDICE Parker. Awake during initial rounds. Denies any pain or discomforts, Voiding QS per urinal. Provided snacks per request at this time. Continue care as planned.
[2016-10-24 20:00] VITALS: BP 127/65
[2016-10-24] MEDS: SERTRALINE HCL 50 MG TABLET PO SCH (20:42)
[2016-10-24] MEDS: LEVOFLOXACIN 750 MG TABLET PO SCH (20:42)
--- NOTE | 2016-10-24 23:35 | NUR ---
Complaint of pain, medicated as needed and ordered. Able to perform accu check this time. Continue to monitor.
[2016-10-25] MEDS: HYDROMORPHONE 1 MG/1 ML DISP.SYRIN IV PRN ×7 (03:23→22:23)
[2016-10-25 04:00] VITALS: BP 133/84
[2016-10-25] MEDS: PANTOPRAZOLE SODIUM 40 MG TABLET.DR PO SCH (06:33)
--- NOTE | 2016-10-25 06:40 | NUR ---
Medicated 4x for pain the whole night with relief. Slept in between care. All needs attended and met. Continue on ATB IVPB as ordered without s/s of adverse reaction noted. Refused wound picture to be done. Charge Nurse aware. No significant event reported all night. Continue care as planned.
--- NOTE | 2016-10-25 07:06 | NUR ---
Bedside reporting with CANDICE Parker
--- NOTE | 2016-10-25 08:00 | NUR ---
AWAKE ALERT EAT BREAKFAST WELL CONTINUE IVF REFUSED TO DRAW LAB THIS AM STATE LATER RESTING QUIET IN BED WITH CALL MCNALLY IN REACH
[2016-10-25] MEDS: METOPROLOL TARTRATE 50 MG TABLET PO SCH ×2 (08:38→20:19)
[2016-10-25] MEDS: AMLODIPINE 10 MG TABLET PO SCH (08:38)
--- NOTE | 2016-10-25 09:20 | NUR ---
C/O OF RT KNEE WOUND PAIN MED GIVEN ORDER AND LAB WAS CALL TO DRAW BLOOD TEST
[2016-10-25 09:58] LABS: CREATININE 1.1 mg/dL (0.6-1.3); POTASSIUM 3.4 mmol/L (3.5-5.1); VANCOMYCIN,TROUGH 15.7 ug/mL (12.0-20.0)
[2016-10-25 11:38] VITALS: BP 129/88
--- NOTE | 2016-10-25 12:00 | NUR ---
WOUND CARE CLEAN JAMES KNEE AND PICTURE TAKEN REFUSED TO TAKE PICTURE AT JAMES ARM SKIN TEAR BUT IT WAS HEALING WELL
[2016-10-25] MEDS: VANCOMYCIN IV 1,250 MG in IV DEXTROSE 5% 500 ML IV SCH (12:03)
[2016-10-25] MEDS: IV NS 1000 ML 1,000 ML IV PRN (12:04)
--- NOTE | 2016-10-25 14:44 | NUR ---
CLINICAL PHARMACY NOTE:VANCOMYCIN DOSING Subjetive: Continue vancomycin on 51 y/o male 5' 10" 170lbs for right knee infection Objective: temp 97.7 BUN 17 scr 1.1 WBC 9.9(10/21) Vanco trough level: 15.7 (today at 0940, taken late as pt refuses) Assessment/Plan Trough level taken late, however, based on regimen frequency, level is still within range and will continue same regimen of 1250mg q12hr. Since drawn late, next scheduled dose was past due. Rescheduled to restart regimen at 1130. Will continue to follow.
[2016-10-25 15:46] VITALS: BP 133/86
--- NOTE | 2016-10-25 17:30 | NUR ---
STABLE HEMODYNAMIC PAIN UNDER CONTROL SAFETY MEASURE PROVIDED CALL LIGHT WITHIN REACH
[2016-10-25] MEDS: HYDROCODONE/APAP 5-325MG TABLET PO PRN (18:09)
--- NOTE | 2016-10-25 19:30 | NUR ---
Bedside reporting with CANDICE Parker. Patient awake on bed, complaining of right knee pain, kind od irritable this time. IVF infusing continously on YVON via Mid line. Continue care as planned.
[2016-10-25 20:00] VITALS: BP 133/88
[2016-10-25] MEDS: LEVOFLOXACIN 750 MG TABLET PO SCH (20:18)
[2016-10-25] MEDS: SERTRALINE HCL 50 MG TABLET PO SCH (20:19)
[2016-10-26] MEDS: IV NS 1000 ML 1,000 ML IV PRN (00:04)
[2016-10-26] MEDS: VANCOMYCIN IV 1,250 MG in IV DEXTROSE 5% 500 ML IV SCH ×3 (00:05→23:30)
[2016-10-26] MEDS: HYDROMORPHONE 1 MG/1 ML DISP.SYRIN IV PRN ×8 (02:06→23:38)
--- NOTE | 2016-10-26 04:23 | NUR ---
Patient awakened asking for another pain meds of Dilaudid. Instructed patient that he is not due yet till 0506 since he got the last dose at 0206. He responded by saying the "F" word repeatedly.
[2016-10-26 05:00] VITALS: BP 143/99
[2016-10-26] MEDS: PANTOPRAZOLE SODIUM 40 MG TABLET.DR PO SCH (05:17)
--- NOTE | 2016-10-26 06:11 | NUR ---
Been medicated for pain 4x throughout the night with relief. All needs attended and met. No s/s of adverse reaction noted from medications. No significant event reported all night. Continue care as planned.
--- NOTE | 2016-10-26 06:55 | NUR ---
Bedside reporting with CANDICE Cross
--- NOTE | 2016-10-26 07:30 | NUR ---
received report from material handler 2nd shift, patient in bed sleeping, no evidence of distress noted. bed in low position, side rails up x2.
[2016-10-26] MEDS: AMLODIPINE 10 MG TABLET PO SCH (08:25)
[2016-10-26] MEDS: METOPROLOL TARTRATE 50 MG TABLET PO SCH ×2 (08:26→20:45)
[2016-10-26 11:24] VITALS: BP 133/83
--- NOTE | 2016-10-26 15:12 | NUR ---
CLINICAL PHARMACY NOTE:VANCOMYCIN DOSING Subjetive: Continue vancomycin on 51 y/o male 5' 10" 170lbs for right knee infection Objective: temp 98.3 BUN 17(10/25) scr 1.1(10/25) WBC 9.9(10/21) Assessment/Plan Will continue same dose of Vancomycin 1250mg IV every 12hrs. Will monitor renal function closely to adjust the dose if needed. Will follow daily.
[2016-10-26 15:51] VITALS: BP 132/74
--- NOTE | 2016-10-26 18:12 | NUR ---
PATIENT HAS BEEN IN BED ALL DAY, PATIENT REPORTS SEVERE PAIN Q3HRS, AND REQUESTS PAIN MEDICATION. NO EVIDENCE OF DISTRESS NOTED AT THIS TIME, BED IN LOW POSITION, SIDE RAILS UP X2, NO SOB, IV CONNECTED.
--- NOTE | 2016-10-26 19:20 | NUR ---
Bedside reporting with CANDICE Cross. Sleeping during initial rounds. No s/s of respiratory distress noted. IVF infusing well on YVON mid line. Continue care as planed.
[2016-10-26 20:00] VITALS: BP 140/88
[2016-10-26] MEDS: LEVOFLOXACIN 750 MG TABLET PO SCH (20:45)
[2016-10-26] MEDS: SERTRALINE HCL 50 MG TABLET PO SCH (20:45)
--- NOTE | 2016-10-26 23:20 | NUR ---
Lab unable to draw Vanco trough, hard stick, tried couple of times, till patient refused. Charge nurse aware. No Vancocin IVPB to be administered. Will endorse to AM shift.
[2016-10-27] MEDS: IV NS 1000 ML 1,000 ML IV PRN ×2 (02:41→12:04)
[2016-10-27] MEDS: HYDROMORPHONE 1 MG/1 ML DISP.SYRIN IV PRN ×7 (02:44→20:59)
[2016-10-27] MEDS: PANTOPRAZOLE SODIUM 40 MG TABLET.DR PO SCH (05:57)
--- NOTE | 2016-10-27 06:36 | NUR ---
Patient refused lab draw this morning for Vanco random. Pt states "do it later". Charge Nurse aware. Will notify Pharmacy for the Vancomycin not given due to no vanco trough drawn in a scheduled time.
--- NOTE | 2016-10-27 06:43 | NUR ---
Slept in between care. Medicated for pain 4x as needed and ordered with relief. All needs attended and met. Continue care as planned,.
--- NOTE | 2016-10-27 06:53 | NUR ---
Bedside reporting with CANDICE Cross.
--- NOTE | 2016-10-27 07:20 | NUR ---
RECEIVED REPORT FROM AIR BRUSH ARTIST NURSE, PATIENT IS IN BED SLEEPING, NO EVIDENCE OF DISTRESS NOTED, BED IN LOW POSITION, SIDE RAILS UP X2.
--- NOTE | 2016-10-27 07:40 | NUR ---
ID DR. PADILLA AT BEDSIDE. applied gauze to the eschar of R knee that was draining serosanguinous-purulent fluid.
[2016-10-27] MEDS: METOPROLOL TARTRATE 50 MG TABLET PO SCH ×2 (08:26→20:58)
[2016-10-27] MEDS: AMLODIPINE 10 MG TABLET PO SCH (08:26)
[2016-10-27] MEDS: VANCOMYCIN IV 1,250 MG in IV DEXTROSE 5% 500 ML IV SCH ×2 (09:00→20:58)
[2016-10-27 11:29] VITALS: BP 114/76
[2016-10-27 15:12] VITALS: BP 136/81
--- NOTE | 2016-10-27 15:41 | NUR ---
CLINICAL PHARMACY NOTE:VANCOMYCIN DOSING Subjetive: Continue vancomycin on 51 y/o male 5' 10" 170lbs for right knee infection Objective: temp 98.3(10/26) BUN 17(10/25) scr 1.1(10/25) WBC 9.9(10/21) Assessment/Plan Will continue same dose of Vancomycin 1250mg IV every 12hrs. Will monitor renal function closely to adjust the dose if needed. Will follow daily.
--- NOTE | 2016-10-27 16:30 | NUR ---
Discharge Plan: Once medically cleared the patient will be discharged to [facility] [address] [place] [id number].[place] [address] . Donna [Admission's coordinator] accepted the patient and informed this pyrotechnist that they can accommodate the patient Saturday 10/28 or Monday 10/30. Currently awaiting confirmation. CM/SW to follow up.
[2016-10-27 19:00] VITALS: BP 135/86
--- NOTE | 2016-10-27 19:05 | NUR ---
GAVE REPORT TO STRIPER SPRAY GUN NURSE, PATIENT IN BED, NO EVIDENCE OF DISTRESS NOTED, MINI FROM PHARMACY ENDORSED THAT VANCO TROUGH HAS BEEN CANCELLED, AND THAT VANCO SHOULD BE ADMINISTERED ANYWAYS.
--- NOTE | 2016-10-27 19:30 | NUR ---
RECEIVED PATIENT LAYING IN BED. NO ACUTE DISTRESS NOTED. SAFETY INITIATED. CALL LIGHT WITHIN REACH. ESCHAR ON THE RIGHT KNEE. A&O X'S 4. BED IN LOW AND LOCKED POSITIONED. WILL CONTINUE TO MONITOR.
--- NOTE | 2016-10-27 19:40 | NUR ---
ID DR. PADILLA AT BEDSIDE "applied gauze to the eschar of R knee that was draining serosanguinous-purulent fluid".
[2016-10-27] MEDS: SERTRALINE HCL 50 MG TABLET PO SCH (20:58)
[2016-10-27] MEDS: LEVOFLOXACIN 750 MG TABLET PO SCH (21:11)
[2016-10-28] MEDS: HYDROCODONE/APAP 5-325MG TABLET PO PRN ×2 (02:20→08:35)
[2016-10-28 04:00] VITALS: BP 150/70
--- NOTE | 2016-10-28 05:19 | NUR ---
DRESSING HAD QUARTER SIZE BLOODY DRAINAGE. PATIENT REFUSED TO HAVE 4X4 DRESSING CHANGED.
[2016-10-28] MEDS: PANTOPRAZOLE SODIUM 40 MG TABLET.DR PO SCH (06:11)
--- NOTE | 2016-10-28 06:26 | NUR ---
PATIENT SLEPT INTERMITTENTLY T/O THE NIGHT. NO ACUTE DISTRESS NOTED. ALL MEDS GIVEN ORDERED. WOUND CARE PROVIDED EARLIER ON THE SHIFT. REFUSED TO CHANGE DRESSING THIS AM. FREQUENTLY ASKS FOR PAIN MEDICATION. GIVEN ORDERED. STATED RELIEF. SAFETY AND COMFORT MEASURES MAINTAINED T/O SHIFT. ALL MEDS GIVEN ORDERED. ALL NEEDS MET. WILL CONTINUE TO MONITOR.
--- NOTE | 2016-10-28 07:58 | NUR ---
Awake, alert, oriented x 4, eating breakfast. Denies pain at this time
[2016-10-28] MEDS: AMLODIPINE 10 MG TABLET PO SCH (08:32)
[2016-10-28] MEDS: METOPROLOL TARTRATE 50 MG TABLET PO SCH (08:32)
[2016-10-28] MEDS: VANCOMYCIN IV 1,250 MG in IV DEXTROSE 5% 500 ML IV SCH (08:33)
[2016-10-28 10:54] VITALS: BP 135/75
--- NOTE | 2016-10-28 11:10 | NUR ---
With discharge order to SNF. Report given to Alayna of [facility]. DC instructions given to patient, verbalized understanding.
--- NOTE | 2016-10-28 11:32 | NUR ---
Discharged per gurney/ambulance in fair condition. not in distress, afebrile. Midline RUE intact and patent.
== END 2016-10-28 11:45 | DRG 720 ==
LOC: ER 16:22 → TELE 18:43 → MED 21:30
PROVIDERS: ADMIT Internal Medicine; ATTEND Internal Medicine
PROC: 0S9C3ZX Drainage of Right Knee Joint, Percutaneous Approach, Diagnostic (ICD-10-PCS; principal; 2016-10-13)
PROC: 05H533Z Insertion of Infusion Device into Right Subclavian Vein, Percutaneous Approach (ICD-10-PCS; 2016-10-15)
DX: A41.9 Sepsis, unspecified organism (principal); N17.0 Acute kidney failure with tubular necrosis; M72.6 Necrotizing fasciitis; E43 Unspecified severe protein-calorie malnutrition; I11.9 Hypertensive heart disease without heart failure; D64.9 Anemia, unspecified; S59.901A Unspecified injury of right elbow, initial encounter; L03.115 Cellulitis of right lower limb; B95.7 Other staphylococcus as the cause of diseases classified elsewhere; R65.20 Severe sepsis without septic shock; Z68.24 Body mass index [BMI] 24.0-24.9, adult; Z59.0 Homelessness; S80.211A Abrasion, right knee, initial encounter; V19.9XXA Pedal cyclist (driver) (passenger) injured in unspecified traffic accident, initial encounter; F31.9 Bipolar disorder, unspecified; Y92.89 Other specified places as the place of occurrence of the external cause; F15.10 Other stimulant abuse, uncomplicated; F11.10 Opioid abuse, uncomplicated; F17.210 Nicotine dependence, cigarettes, uncomplicated; E87.1 Hypo-osmolality and hyponatremia; M25.461 Effusion, right knee; Z91.14 Patient's other noncompliance with medication regimen; Z86.14 Personal history of Methicillin resistant Staphylococcus aureus infection; F20.9 Schizophrenia, unspecified; Y93.55 Activity, bike riding; M60.051 Infective myositis, right thigh; Z86.19 Personal history of other infectious and parasitic diseases; M60.003 Infective myositis, unspecified right leg; M65.9 Synovitis and tenosynovitis, unspecified; F41.9 Anxiety disorder, unspecified
CPT/HCPCS: 36415; 36569; 70030-TC; 71010; 73700; 73721; 83605; 83735; 83986; 84100; 84443; 85025; 85651; 85730; 86140; 87040; 87070; 87075; 87077; 87086; 87205; 87806; 93005; A4663; A9579; J1170; J2270; J2405; J2543; J3370; J3475; J3490; J7030; J7060